=== PATIENT | female | born 1940 | race African-American/Black ===

== ENCOUNTER 2020-04-22 07:16 | Inpatient (IN) | payer MEDICARE, OTHER ==
[2020-04-22] MEDS ORDERED: fentaNYL Citrate/PF 2,000 MCG in Sodium Chloride 0.9% 60 ML IV SCH ×2 (07:35→10:42)
[2020-04-22] MEDS ORDERED: Propofol 1,000 MG/100 ML VIAL IV ONE (07:36)
[2020-04-22 07:51] LABS: #Basophils 0.1 thou/uL (0.0-0.2); #Eosinphils 0.1 thou/uL (0.0-0.7); #Lymphocytes 2.5 thou/uL (1.20-3.40); #Neutrophils 13.6 thou/uL (1.40-6.50); %Basophils 0.4 % (0.0-1.0); %Eosinophils 0.7 % (0.0-10.0); %Lymphocytes 14.2 % (21.0-51.0); %Neutrophils 78.7 % (42.0-75.0); Hemoglobin 9.5 g/dL (12.0-16.0); Mean Corpuscular Hemoglobin 28.6 pg (27.0-31.0); Mean Corpuscular Volume 92.2 fL (78.0-98.0); Mean Platelet Volume 8.3 fL (7.4-10.4); Platelet Count 289 thou/uL (130-400); Red Blood Cell (RBC) Count 3.31 mill/uL (4.20-5.40); White Blood Cell (WBC) Count 17.2 thou/uL (4.8-10.8)
[2020-04-22 08:02] LABS: Analyzer IN Cardio ER; Base Excess (BEa) -10.2 mEq/L (-2.0 to +3.0); CO2 Tension 50.4 mmHg (35.0-45.0); Calcium, Ionized (arterial) 1.18 mmol/L (1.12-1.30); Carboxyhemoglobin (COHb) 0.1 gm% (0.0-3.0); Hemoglobin (Hb) 10.1 g/dL (12.0-16.0); O2 Tension (PaO2), arterial 81.4 mmHg (> 60.0); Potassium - ABG Lab 6.41 mmol/L (3.70-5.30)
[2020-04-22 08:03] LABS: Puncture Site RRA; pH, Arterial 7.17 (7.35-7.45)
[2020-04-22 08:15] LABS: Bacteria/HPF None Seen HPF (None Seen); Bilirubin Negative (Negative); Blood, Urine Negative (Negative); Clarity Clear (Clear); Glucose, Urine (Dipstick) Normal (Negative); Leukocyte Negative Leu/uL (Negative); Nitrite Negative (Negative); Protein, Urine (Dipstick) 70 mg/dL (Neg-Trace); RBC/HPF 0-3 HPF (0-3); Squamous Epithelial 0-3 HPF (0-3); Urobilinogen Normal mg/dL (Less than 2); WBC/HPF 0-3 HPF (0-3)
[2020-04-22 08:17] LABS: ALT (SGPT) 65 U/L (8-55); AST (SGOT) 81 U/L (5-34); Albumin 3.6 g/dL (3.4-4.8); Alkaline Phosphatase 53 U/L (40-110); Anion Gap 16 mmol/L (10-20); BUN (Urea Nitrogen) 63 mg/dL (9.8-20.1); Bilirubin, Total 0.3 mg/dL (0.2-1.2); Calc. Creatinine Clearance 0 mL/min (70-130); Calcium 8.2 mg/dL (7.8-10.44); Carbon Dioxide 20 mmol/L (23-31); Chloride 108 mmol/L (98-107); Estimated GFR-MDRD 9; Globulin 3.7 g/dL (2.4-3.5); Glucose 232 mg/dL (83-110); Potassium 6.5 mmol/L (3.5-5.1); Protein, Total 7.3 g/dL (6.0-8.3); Sodium 137 mmol/L (136-145)
[2020-04-22] MEDS ORDERED: Cefepime 2 GM VIAL ONE (08:43)
[2020-04-22 08:44] LABS: CKMB 1.1 ng/mL (0-6.6)
[2020-04-22] MEDS ORDERED: Vancomycin 1.5 GRAM/300 ML BAG 1.5 GM in Premix Bag 1 BAG IVPB SCH (08:45)
[2020-04-22] MEDS ORDERED: Furosemide 20 MG/2 ML VIAL ONE (09:15)
[2020-04-22] MEDS ORDERED: Enoxaparin Sodium 40 MG/0.4 ML SYRINGE ONE (09:15)
[2020-04-22] MEDS ORDERED: Aspirin 300 MG Suppository ONE (09:15)
[2020-04-22] MEDS ORDERED: Enoxaparin Sodium 30 MG/0.3 ML SYRINGE ONE (09:15)
[2020-04-22] MEDS ORDERED: Calcium Gluconate 4.6 MEQ in Sodium Chloride 0.9% 100 ML IVPB SCH (09:33)
[2020-04-22] MEDS ORDERED: Insulin Regular 300 UNITS/3 ML VIAL IVP STA (09:34)
[2020-04-22] MEDS ORDERED: Dextrose 50% Abboject 50 ML SYRINGE SLOW IVP STA (09:34)
--- NOTE | 2020-04-22 10:06 | PDOC.HHP ---
Hospitalist HPI - History of Present Illness shortness of breath, cardiac arrest requiring CPR History of Present Illness: PATIENT HAS TWO DIFFERENT EMR RECORDS. The patient is intubated so the report is based on ED physician and daughter over the phone, EMR. 79yo F w/ MHx of recent 3-vessel CAD (medical manangement), CHF (combined systolic 20-25% and diastolic), CKD4, hypothyroidism, T2DM, and SLE who was brought by EMS for acute respiratory failure and cardiac arrest. Discharged in after was found to have 3-vessel disease that per cardiology was managed medically. Yesterday, went to PCP and per daughter, no issues during visit. Last night, daughter, who lives with patient, tucked her in bed and patient told her she was feeling well. This morning, woke up with shortness of breath, pressed lifeline button, EMS reportedly found in awake in tripod position breathing heavily. Reportedly had cardiac arrest that lasted for about 5 minutes and required 1 EPI. Was intubated and brought to the ED. On encounter, lying in bed, intubated, responds to light touch. ROS could not be elicited but on coversation over phone with daughter, yesterday night did not complain of headache, change in vision, chills, night sweats, chest pain or pressure, palpitations, dyspnea, worsening orthopnea (has baseline orthopnea), abdominal pain, diarrhea,dysuria, hematemesis, hematochezia, melena ED Course: In the ED, metaboilc and respiratory acidosis, intubated, IVF were administered and was admitted to CCU for further management Hospitalist ROS - Review of Systems ROS unobtainable: due to endotracheal tube All other systems reviewed; all pertinent +/- noted in HPI/Subj Hospitalist History - Past Medical History Source: family, old records (PAST MEDICAL HISTORY: 1. Diabetes mellitus. 2. Lupus. 3. Hypertension. 4. 3-vessel CAD, medically managed 5. Hyperlipidemia. 6. Hypothyroidism. 7. Chronic kidney disease 4. 8. CHF combined PAST SURGICAL HISTORY: 1. Partial thyroidectomy. 2. Left shoulder surgery. 3. Breast biopsy. SOCIAL HISTORY: The patient lives at home with daughter. No history of smoking, alcohol drinking, or drug abuse. FAMILY HISTORY: Reviewed and noncontributory.) - Exam General - other findings: intubated and sedated Eye: PERRL, anicteric sclera ENT: normocephalic atraumatic, dry oral mucosa Neck: JVD Heart: RRR, no murmur, no gallops, no rubs Respiratory: no wheezes, no rales, no ronchi Respiratory - other findings: intubated, coarse breath sounds Gastrointestinal: soft, non-tender, non-distended, normal bowel sounds, no palpable masses, no hepatomegaly, no splenomegaly, no bruit Extremities: 2+ LE edema Extremities - other findings: b/l pitting equal to knee level Hospitalist Results - Labs Result Diagrams: 04/22/20 07:37 04/22/20 07:37 Lab results: WBC 17.2 thou/uL (4.8-10.8) H 04/22/20 07:37 Hgb 9.5 g/dL (12.0-16.0) L 04/22/20 07:37 Hct 30.6 % (36.0-47.0) L 04/22/20 07:37 MCV 92.2 fL (78.0-98.0) 04/22/20 07:37 Plt Count 289 thou/uL (130-400) 04/22/20 07:37 Neutrophils % 78.7 % (42.0-75.0) H 04/22/20 07:37 ABG pH 7.17 (7.35-7.45) L* 04/22/20 07:57 ABG pCO2 50.4 mmHg (35.0-45.0) H 04/22/20 07:57 ABG pO2 81.4 mmHg (> 60.0) H 04/22/20 07:57 Sodium 137 mmol/L (136-145) 04/22/20 07:37 Potassium 6.5 mmol/L (3.5-5.1) H 04/22/20 07:37 Chloride 108 mmol/L (98-107) H 04/22/20 07:37 Carbon Dioxide 20 mmol/L (23-31) L 04/22/20 07:37 BUN 63 mg/dL (9.8-20.1) H 04/22/20 07:37 Creatinine 4.62 mg/dL (0.6-1.1) H 04/22/20 07:37 Glucose 232 mg/dL (83-110) H 04/22/20 07:37 Lactic Acid 5.2 mmol/L (0.5-2.2) H* 04/22/20 07:18 Calcium 8.2 mg/dL (7.8-10.44) 04/22/20 07:37 Total Bilirubin 0.3 mg/dL (0.2-1.2) 04/22/20 07:37 AST 81 U/L (5-34) H 04/22/20 07:37 ALT 65 U/L (8-55) H 04/22/20 07:37 Alkaline Phosphatase 53 U/L (40-110) 04/22/20 07:37 CK-MB (CK-2) 1.1 ng/mL (0-6.6) 04/22/20 07:37 Troponin I 0.037 ng/mL (< 0.028) H 04/22/20 07:37 B-Natriuretic Peptide 2039.4 pg/mL (0-100) H 04/22/20 07:37 Serum Total Protein 7.3 g/dL (6.0-8.3) 04/22/20 07:37 Albumin 3.6 g/dL (3.4-4.8) 04/22/20 07:37 Urine Ketones Negative mg/dL (Negative) 04/22/20 07:55 Urine Blood Negative (Negative) 04/22/20 07:55 Urine Nitrite Negative (Negative) 04/22/20 07:55 Ur Leukocyte Esterase Negative Aimee/uL (Negative) 04/22/20 07:55 Urine RBC 0-3 HPF (0-3) 04/22/20 07:55 Urine WBC 0-3 HPF (0-3) 04/22/20 07:55 Ur Squamous Epith Cells 0-3 HPF (0-3) 04/22/20 07:55 Urine Bacteria None Seen HPF (None Seen) 04/22/20 07:55 - EKG Interpretation EKG: sinus, LBBB (old per ED), v1 and v2 discordant COLEEN that does not qualify sgarbosa criteria Hospitalist H&P A/P - Problem (1) Acute respiratory failure with hypoxia and hypercapnia Code(s): J96.01 - ACUTE RESPIRATORY FAILURE WITH HYPOXIA; J96.02 - ACUTE RESPIRATORY FAILURE WITH HYPERCAPNIA Status: Acute (2) Cardiac arrest Code(s): I46.9 - CARDIAC ARREST, CAUSE UNSPECIFIED Status: Acute (3) Hyperkalemia Code(s): E87.5 - HYPERKALEMIA Status: Acute (4) Acute kidney injury superimposed on CKD Code(s): N17.9 - ACUTE KIDNEY FAILURE, UNSPECIFIED; N18.9 - CHRONIC KIDNEY DISEASE, UNSPECIFIED Status: Acute (5) Combined congestive systolic and diastolic heart failure Code(s): I50.40 - UNSP COMBINED SYSTOLIC AND DIASTOLIC (CONGESTIVE) HRT FAIL Status: Acute - Plan Plan: #TOM on CKD, severe hyperkalemia #acute hypoxic hypercapnic respiratory failure #3-vessel CAD #cardiac arrest -CXR showing b/l patchy infiltrates R>L, c/w pulmonary edema -likely related to CHF and TOM induced hypervolemia and hyperkalemia, possibly complicated by diaphragatic weakness due to hyperkalemia; ACS -Well's score low risk for pulmonary embolism -unlikely infectious etiology considering acuteness of event and presentation -sedated on encounter, could not assess recovery s/p cardiac arrest to evaluate indication for targetted temperature -discussed with daughter, who discussed with family and decided DNAR -EKG showing peaked T-waves -low risk for COVID; pending PCR -sedation break; assess response for targetted temperature indication -trop, ekg trending -mechanical ventilation as per PCCM -start vanc, cefepime pending infectious work up; low threshold for stopping antibiotics -insulin, glucose, calcium gluconate, kayexalate order while in ED -Hospice evaluation; if not going to hospice, consult cardiology (LBBB with QRS > 150ms carlos require biventricular pacemaker) and neprhology (if renal function does not improved / persistent hyperkalemia or acidosis may need HD) #T2DM -medically managed as outpatient -mild correction scale -check glucose q4h, hypoglycemia protocol #hypothyroidism -restart home levothyroxine #HTN -PRN medication #PPX/dispo DNAR (son and daughter); pending palliative team care evaluation for hospice DVT PPx - lovenox GI PPx not indicated
[2020-04-22] MEDS ORDERED: Morphine 2 MG/ML SYRINGE SLOW IVP PRN (10:42)
[2020-04-22] MEDS ORDERED: Fentanyl BOLUS 250 ML IVPB PRN (10:42)
[2020-04-22] MEDS ORDERED: Lorazepam 2 MG/ML VIAL SLOW IVP PRN (10:42)
[2020-04-22] MEDS ORDERED: DISCONTINUE PREVIOUS NARCOTIC PAIN MEDICATIONS AND BENZODIAZEPINES FS SCH (10:42)
[2020-04-22] MEDS ORDERED: Propofol 1,000 MG/100 ML VIAL IV PRN (10:42)
[2020-04-22] MEDS ORDERED: Propofol BOLUS 1,000 MG/100 ML VIAL IV PRN (10:42)
--- NOTE | 2020-04-22 11:07 | RAD ---
SINGLE VIEW OF THE CHEST: COMPARISON: 04/07/2020. HISTORY: Difficulty breathing. FINDINGS: A single view of the chest shows an enlarged but stable cardiomediastinal silhouette. There appears to be an endotracheal tube. It is difficult to see the exact location of the tip, but this appears t o be above the shakir. Multifocal mixed infiltrates are seen in the lungs. No pleural effusion is s een. IMPRESSION: Multifocal pneumonia. POS: [facility]
[2020-04-22] MEDS ORDERED: Dextrose 5% in Water 1,000 ML IV PRN (11:10)
[2020-04-22] MEDS ORDERED: Dextrose 50% Abboject 50 ML SYRINGE SLOW IVP PRN (11:10)
[2020-04-22] MEDS ORDERED: HumaLOG 300 UNITS/3 ML VIAL SC PRN (11:10)
[2020-04-22 11:17] LABS: Lactic Acid 1.6 mmol/L (0.5-2.2)
[2020-04-22] MEDS ORDERED: Acetaminophen 650 MG/20.3 ML UDCUP PO PRN (11:22)
[2020-04-22] MEDS ORDERED: Electrolyte Replacement Protoc 1 EACH EACH IVPB ONE (11:22)
[2020-04-22 11:26] LABS: Troponin I 0.078 ng/mL (< 0.028)
[2020-04-22] MEDS ORDERED: Azithromycin 500 MG in Sodium Chloride 0.9% 250 ML 250 ML IVPB SCH (13:00)
[2020-04-22 13:13] VITALS: BMI 26.1
[2020-04-22 14:07] LABS: Anion Gap 15 mmol/L (10-20); BUN (Urea Nitrogen) 63 mg/dL (9.8-20.1); Calc. Creatinine Clearance 12 mL/min (70-130); Calcium 6.9 mg/dL (7.8-10.44); Carbon Dioxide 14 mmol/L (23-31); Chloride 113 mmol/L (98-107); Estimated GFR-MDRD 12; Glucose 351 mg/dL (83-110); Potassium 6.3 mmol/L (3.5-5.1); Sodium 136 mmol/L (136-145); Troponin I 0.083 ng/mL (< 0.028)
[2020-04-22 14:25] VITALS: TEMP 97.4
[2020-04-22 15:51] VITALS: BP 166/90
--- NOTE | 2020-04-22 17:12 | CON ---
DATE OF CONSULTATION: 04/22/2020 HISTORY OF PRESENT ILLNESS: Dinah Ahmadi is an 79-year-old female, found down at home. Apparently, she was still alive when EMS arrived, but arrested somewhere between the EMS arrival and the hospital. She was resuscitated. PAST MEDICAL HISTORY: Remarkable for: 1. Diabetes. 2. Lupus. 3. Hypertension. 4. Coronary artery disease. 5. Hypothyroidism. 6. Lipid disorder. 7. Chronic kidney disease. 8. History of systolic and diastolic heart failure. 9. History of thyroidectomy. 10. History of shoulder surgery. 11. History of breast biopsy. 12. She has not been hospitalized here before reviewing records. REVIEW OF SYSTEMS: Not obtainable. FAMILY HISTORY: Not obtainable. PHYSICAL EXAMINATION: VITAL SIGNS: Heart rate is 50, blood pressure is in the 60s to 70s, respiratory rates in the 20s. GENERAL: She is unresponsive. She does have spontaneous respiratory movement. HEENT: Her pupils are sluggish. NECK: Supple. LUNGS: Clear. HEART: Regular rhythm. ABDOMEN: Soft. EXTREMITIES: Without asymmetry or edema. LABORATORY DATA: White count 17.2, hemoglobin 9.5, and platelets 289. Sodium 136, potassium 6.3, chloride 113, bicarb 14, BUN 63, and creatinine 4.17. IMPRESSION: 1. Multiple medical problems, now status post cardiac and respiratory arrest with probable anoxic injury associated with this. 2. Chronic kidney disease. 3. Hyperkalemia. 4. Hypotension. 5. History of congestive heart failure. She has bilateral infiltrates based on history and most likely pulmonary edema after her code. For acute onset of her illness (she was fine yesterday reportedly), argues against this being a COVID infection, that test is pending. We will follow, but her prognosis is quite poor and she may not survive this given her hypotension and probable anoxic injury. Critical care time 30 min. Job ID: [id number] MTDD
--- NOTE | 2020-04-22 17:55 | RAD ---
FRONTAL RADIOGRAPH CHEST: Date: 04-22-2020 Comparison: Earlier same day, 04-07-2020 History: Difficulty breathing. FINDINGS: There is an endotracheal tube projecting over the tracheal air column, terminating at the level of th e clavicular heads. Nasogastric tube extends into left upper quadrant. There is hazy airspace disease in the left perihilar region and left upper lobe region medially, new when compared to 04-07-2020. Hazy airspace disease noted in the right lung base, new as well. Small ti wel pleural effusions are noted. Airspace disease is noted in the medial left lung base. IMPRESSION: Lines and tubes as detailed above. Interval worsening of aeration within the left perihilar region, l eft upper lobe and right lung base. Findings may signify nonspecific multifocal infectious pneumoniti s, aspiration and/or edema. POS: [facility]
[2020-04-23] MEDS ORDERED: Prevnar 13-Val Conj/PF 0.5 ML SYRINGE IM ONE (09:00)
[2020-04-23] MEDS ORDERED: Cefepime 1 GM in Sodium Chloride 0.9% 100 ML IVPB SCH (09:00)
[2020-04-23] MEDS ORDERED: Vancomycin 1 GM in Premix Bag 1 BAG IVPB SCH (10:00)
[2020-04-23 12:17] LABS: SARS-CoV-2 MS2 Positive; SARS-CoV-2 N Gene Negative; SARS-CoV-2 S Gene Negative; SARS-CoV-2 orf1ab Negative
--- NOTE | 2020-04-23 23:21 | DIS ---
DATE OF ADMISSION: 04/22/2020 DATE OF DISCHARGE: 04/22/2020 HOSPITAL COURSE: Ms. Ahmadi is an 79-year-old female, with a medical history of 3-vessel coronary artery disease, end-stage mixed heart failure, CKD 4, and type 2 diabetes, who presented with acute hypoxic hypercapnic respiratory failure and cardiac arrest. She was found to have severe hyperkalemia. Following arrest, she was admitted to the ICU. Palliative Team was consulted and the family discussion by both myself and the palliative team resulted in transitioning the patient to comfort care. The patient was terminally extubated and shortly after at 2:55 p.m. Job ID: [id number]
--- NOTE | 2020-04-25 21:02 | PQF ---
DAINA JULES, CHRISTINE [id number] U-[id number] CLINICAL DOCUMENTATION CLARIFICATION FORM: POST DISCHARGE Addendum to original discharge summary date: ____ Late entry note date: __ DATE: 04/25/2020 ATTN: Christine Dee Please exercise your independent, professional judgment in responding to the clarification form. Clinical indicators are provided on the bottom of this form for your review Please check appropriate box(s) to clarify if the following diagnosis has been ruled in or ruled out: Sepsis [ ] Ruled in diagnosis [ ] Continue to treat [ ] Resolved [ x ] Ruled out diagnosis [ ] Cannot rule out diagnosis [ ] Other diagnosis [ ] Unable to determine For continuity of documentation, please document condition throughout progress notes and discharge summary. Thank You. CLINICAL INDICATORS - SIGNS / SYMPTOMS / LABS Laboratory 04/22 WBC 17.2, Plt count 289, neutrophils 78.7, lactic Acid 5.2 Vital signs 04/22 BP 151/82, pulse 97, resp 22 Chest X-ray 04/22 Impression: showing b/l patchy infiltrates R>L ED notes p12 04/22 Brought in by EMS with Shortness of breath ED notes p13 04/22 Sepsis unknown source. Nj criteria for Septic shock with lactic over 4, though not hypotensive H&P p1 04/22 Dr Washington Brought by EMS for Acute respiratory failure and Cardiac arrest RISK FACTORS H&P p1 04/22 79 year-old Female H&P p1 04/22 CAD H&P p1 04/22 CKD4 H&P p1 04/22 HTN H&P p1 04/22 Combined CHF H&P p1 04/22 DM2 H&P p1 04/22 SLE TREATMENTS JAN 14 Aspirin 300mg JAN 14 IV Azithromycin 500 mg JAN 14 IV Cefepime 2gm JAN 14- IV Lasix 20 mg JAN 14 IV Levaquin 750 mg JAN 14 IV Vancomycin 2 gm JAN 14 IVF NS 1L Blood culture ordered 04/22 Respiratory Panel Mechanical Ventilator Chest X-ray ordered 04/22 (This form is maintained as a part of the permanent medical record) 2014 [employer], [employer] All Rights Reserved [email or web address]
--- NOTE | 2020-04-25 21:04 | PQF ---
JORGE ADAINA DOMINGUEZ, CHRISTINE [id number] U-A11 [id number] CLINICAL DOCUMENTATION CLARIFICATION FORM: POST DISCHARGE Addendum to original discharge summary date: ____ Late entry note date: __ DATE: 04/25/2020 ATTN: Dr Jeffries, Christine: Please exercise your independent, professional judgment in responding to the clarification form. Clinical indicators are provided on the bottom of this form for your review In your clinical opinion based on clinical findings below, can you please identify the etiology of Acute Respiratory failure if due to: Please check appropriate box(s): [ ] Sepsis [ ] Acute Exacerbation of CHF [x ] Other diagnosis cardiac arrest [ ] Unable to determine For continuity of documentation, please document condition throughout progress notes and discharge summary. Thank You. CLINICAL INDICATORS - SIGNS / SYMPTOMS / LABS Laboratory 04/22 WBC 17.2, Plt count 289, neutrophils 78.7, lactic Acid 5.2, BNP 2039.4, troponin I 0.037 ABG 04/22 pH7.17, pCO2 50.4, pO2 81.4, O2 sat 91.9%, Base excess -10.3 Blood culture 04/22 no growth at 48 hrs Vital signs 04/22 BP 151/82, pulse 97, resp 22 Chest X-ray 04/22 Impression: showing b/l patchy infiltrates R>L, Pulmonary edema ED notes p4 04/22 GCS 7 ED notes p12 04/22 Brought in by EMS with Shortness of breath ED notes p13 04/22 Sepsis unknown source. Meets criteria for Septic shock with lactic over 4, though not hypotensive ED notes p13 04/22 Compared to prior labs BNP was 3700, hgb 8.7, Today BNP is around 2000 H&P p1 04/22 Dr Washington Brought by EMS for Acute respiratory failure and Cardiac arrest RISK FACTORS H&P p1 04/22 79 year-old Female H&P p1 04/22 CAD H&P p1 04/22 CKD4 H&P p1 04/22 HTN H&P p1 04/22 Combined CHF H&P p1 04/22 DM2 H&P p1 04/22 SLE TREATMENTS: JAN 14 Aspirin 300mg JAN 14 IV Azithromycin 500 mg JAN 14 IV Cefepime 2gm JAN 14- IV Lasix 20 mg JAN 14 IV Levaquin 750 mg JAN 14 IV Vancomycin 2 gm JAN 14 IVF NS 1L ABG ordered 04/22 Blood culture ordered 04/22 Respiratory Panel Mechanical Ventilator Chest X-ray ordered 04/22 (This form is maintained as a part of the permanent medical record) 2014 [employer], [employer]. All Rights Reserved [email or web address]
--- NOTE | 2020-04-30 12:12 | EKG ---
Test Reason : Blood Pressure : / mmHG Vent. Rate : 089 BPM Atrial Rate : 089 BPM P-R Int : 202 ms QRS Dur : 156 ms QT Int : 432 ms P-R-T Axes : 039 -31 -05 degrees QTc Int : 525 ms Normal sinus rhythm with sinus arrhythmia Possible Left atrial enlargement Left axis deviation Left bundle branch block Abnormal ECG Confirmed by MAYURI TRAMMELL DO ([id number]), copy editor BERTHA VASQUEZ ([id number]) on 04/30/2020 12:11:56 PM Referred By: Confirmed By:MAYURI TRAMMELL DO
== END 2020-04-22 14:55 | disposition expired | DRG 208 ==
LOC: EDBD 07:16 → ERS 07:16 → CCU 07:34
PROVIDERS: ADMIT Internal Medicine; ATTEND Internal Medicine
PROC: 5A1935Z Respiratory Ventilation, Less than 24 Consecutive Hours (ICD-10-PCS; principal; 2020-04-22)
DX: J96.01 Acute respiratory failure with hypoxia (principal); R40.2342 Coma scale, best motor response, flexion withdrawal, at arrival to emergency department; R40.2122 Coma scale, eyes open, to pain, at arrival to emergency department; R40.2212 Coma scale, best verbal response, none, at arrival to emergency department; N18.4 Chronic kidney disease, stage 4 (severe); E87.2 Acidosis; I13.0 Hypertensive heart and chronic kidney disease with heart failure and stage 1 through stage 4 chronic kidney disease, or unspecified chronic kidney disease; N17.9 Acute kidney failure, unspecified; G93.1 Anoxic brain damage, not elsewhere classified; I50.42 Chronic combined systolic (congestive) and diastolic (congestive) heart failure; Z20.828 Contact with and (suspected) exposure to other viral communicable diseases; Z66 Do not resuscitate; Z51.5 Encounter for palliative care; J96.02 Acute respiratory failure with hypercapnia; I25.10 Atherosclerotic heart disease of native coronary artery without angina pectoris; M32.9 Systemic lupus erythematosus, unspecified; E11.22 Type 2 diabetes mellitus with diabetic chronic kidney disease; E78.5 Hyperlipidemia, unspecified; E89.0 Postprocedural hypothyroidism; I46.9 Cardiac arrest, cause unspecified; E86.1 Hypovolemia; E87.5 Hyperkalemia; Z78.1 Physical restraint status; Z95.1 Presence of aortocoronary bypass graft; Z79.899 Other long term (current) drug therapy; Z79.82 Long term (current) use of aspirin; Z79.01 Long term (current) use of anticoagulants; Z79.890 Hormone replacement therapy; Z79.4 Long term (current) use of insulin
CPT/HCPCS: 36415; 51702; 71045; 80053; 81003; 81015; 82553; 82805; 83605; 83735; 83880; 84484; 85025; 87040; 87635; 93005; 94002; 96361; 96365; 96366; 96367; 96372; 96374; 99292; J0456; J0692; J1650; J1815; J1940; J1956; J2704; J3010; J3370; J3490; J7050; U0003